=== PATIENT | female | born 1980 | race Caucasian/White ===

== ENCOUNTER 2020-07-18 14:37 | Emergency (ER) | payer BC, OTHER ==
[~2020-07-18 14:37] MED LIST: AUGMENTIN 875-1 EACH PO; CEFUROXIME250 MG PO; DEPAKOTE; FLEXERIL 10 MG10 MG PO; HYDROCODON-ACE1 EAC4 PO; IBUPROFEN600 MG PO; LOVENOX SY40 MG/0.4 SQ; MACROBID 100 M100 MG PO; NORCO 5-325 TA1 EACH PO; PERCOCET 10-321 EACH PO; PERCOCET 7.5-31 EACH PO; PHENERGAN 12.12.5 M1 PO; PREDNISONE 20 M20 MG PO; PROAIR DIGIHAL90 MCG INH; ZOFRAN4 MG PO; [UNRECOGNIZED DRUG - OTHER]
[2020-07-18] MEDS ORDERED: IBUPROFEN800 MG PO (15:37)
== END 2020-07-18 15:48 | disposition home or self-care (01) ==
LOC: ER1 14:37
DX: S92.415A Nondisplaced fracture of proximal phalanx of left great toe, initial encounter for closed fracture (principal); F17.210 Nicotine dependence, cigarettes, uncomplicated; W01.0XXA Fall on same level from slipping, tripping and stumbling without subsequent striking against object, initial encounter; Y92.009 Unspecified place in unspecified non-institutional (private) residence as the place of occurrence of the external cause
CPT/HCPCS: 73590; 73610; 73630; 99283

== ENCOUNTER 2020-10-31 08:49 | Emergency (ER) | payer BC, OTHER ==
[~2020-10-31 08:49] MED LIST changes: +IBUPROFEN800 MG PO
[2020-10-31 09:24] LABS: HEMOGLOBIN 14.4 gm/dl (12.3-15.3); RED BLOOD COUNT 5.08 M/UL (4.00-5.10); WHITE BLOOD COUNT 13.2 K/UL (4.5-11.0)
[2020-10-31 09:44] LABS: BUN/CREATININE RATIO 10 (0-10)
== END 2020-10-31 11:36 | disposition home or self-care (01) ==
LOC: ER1 08:49
PROVIDERS: Physician Assistant
DX: R10.9 Unspecified abdominal pain (principal); R11.0 Nausea; J44.9 Chronic obstructive pulmonary disease, unspecified; F17.200 Nicotine dependence, unspecified, uncomplicated; Z90.49 Acquired absence of other specified parts of digestive tract
CPT/HCPCS: 80053; 81001; 84703; 85025; 99284

== ENCOUNTER 2021-04-07 09:18 | Emergency (ER) | payer BC, OTHER ==
[2021-04-07 11:02] LABS: RED BLOOD COUNT 5.33 M/UL (4.00-5.10); WHITE BLOOD COUNT 18.6 K/UL (4.5-11.0)
[2021-04-07 11:44] LABS: BUN/CREATININE RATIO 5 (0-10)
[2021-04-07] MEDS ORDERED: CLEOCIN HCL300 MG PO (14:41)
[2021-04-07] MEDS ORDERED: NAPROXEN500 MG PO (14:41)
[2021-04-07] MEDS ORDERED: NORFLEX 100 MG100 MG PO (14:41)
[2021-04-08] MEDS ORDERED: PREDNISONE 20 M20 MG PO (14:01)
[2021-04-08] MEDS ORDERED: EPIPEN 2-P0.3 MG/0.3 INJ (14:03)
== END 2021-04-07 14:50 | disposition home or self-care (01) ==
LOC: ER1 09:18
PROVIDERS: Physician Assistant Medical
DX: R51.9 Headache, unspecified (principal); J44.9 Chronic obstructive pulmonary disease, unspecified; F17.210 Nicotine dependence, cigarettes, uncomplicated; Z91.012 Allergy to eggs
CPT/HCPCS: 70260; 70470; 80053; 85025; 96372; 96374; 96375; 99284; J1885; J2405; Q9967

== ENCOUNTER 2021-04-08 12:15 | Emergency (ER) | payer BC, OTHER ==
[~2021-04-08 12:15] MED LIST changes: +CLEOCIN HCL300 MG PO; +NAPROXEN500 MG PO; +NORFLEX 100 MG100 MG PO
[2021-04-08] MEDS ORDERED: PREDNISONE 20 M20 MG PO (14:01)
[2021-04-08] MEDS ORDERED: EPIPEN 2-P0.3 MG/0.3 INJ (14:03)
== END 2021-04-08 14:05 | disposition home or self-care (01) ==
LOC: ER1 12:15
DX: T88.6XXA Anaphylactic reaction due to adverse effect of correct drug or medicament properly administered, initial encounter (principal); T36.1X5A Adverse effect of cephalosporins and other beta-lactam antibiotics, initial encounter; F17.210 Nicotine dependence, cigarettes, uncomplicated; L50.0 Allergic urticaria; L27.0 Generalized skin eruption due to drugs and medicaments taken internally; Z88.1 Allergy status to other antibiotic agents
CPT/HCPCS: 96372; 96374; 96375; 99283; J0171; J2550